=== PATIENT | male | born 1995 | race Caucasian/White ===

== ENCOUNTER 2019-06-02 20:13 | Emergency (ER) | payer BC ==
[~2019-06-02] VITALS: Ht 172.7 cm; Wt 60.3 kg
[2019-06-02 20:31] VITALS: Ht 172.7 cm; Wt 60.3 kg
[2019-06-02 22:58] VITALS: BP 103/73
== END 2019-06-02 21:00 | disposition home or self-care (01) ==
LOC: ED 20:13
DX: A08.4 Viral intestinal infection, unspecified (principal)